=== PATIENT | male | born 1975 | race Asian ===

== ENCOUNTER 2021-12-06 13:35 | Emergency (ER) | payer MEDICAID ==
[2021-12-06 13:41] VITALS: BP 131/83
[2021-12-06] MEDS ORDERED: NORCO 325 MG-51 TA1 PO (14:47)
== END 2021-12-06 14:57 | disposition home or self-care (01) ==
LOC: ED 13:35
DX: M25.512 Pain in left shoulder (principal); Z91.81 History of falling